=== PATIENT | female | born 1945 | race Caucasian/White ===

== ENCOUNTER 2019-10-09 11:43 | Emergency (ER) | payer MEDICARE ==
--- OUTSIDE RECORDS SUMMARY | 2019-10-09 11:51 | XMS REPORT | Continuity of Care Document ---
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 Onset: 08/28/2011 Diabetic gastroparesis Elicia Jones M.D. Onset: 02/05/2015 Chest pain Onset: Social History Type Date Description Comments Sex Unknown Tobacco Use Start: Unknown End: Unknown Quit Cigarette Use Pack Years - 10 ETOH Use Denies alcohol use Tobacco Use Start: Unknown End: Unknown Patient is a former smoker Recreational Drug Use Denies Drug Use Tobacco Use Start: Unknown Quit 36 years ago Smoking Status Reviewed: 09/30/19 Quit 36 years ago Allergies, Adverse Reactions, Alerts Description No Known Drug Allergies Medications Active Medications SIG Qnty Indications Ordering Provider Date Centrum Silver 1 by mouth every Unknown Tablets day Losartan Potassium 1 by mouth every Unknown day 100mg Tablets Metformin HCL take 1 tablet by marilee Jones, 500mg mouth bid Javier Rubi Tablets Simvastatin take 1 tablet by marilee Jones, 40mg mouth once daily Javier Rubi Tablets Ranitidine 150 2 by mouth every Unknown Maximum Strength day 150mg Tablets Vitamin B Complex take one every Unknown day Tablets Aspirin 1 by mouth every Unknown 325mg Tablets day Aleve take one every 4 Unknown 220mg Tablets hours as needed for pain Vitamin D3 Complete 1 by mouth every Unknown day Tablets Immunizations CPT Code Status Date Vaccine Lot # [id number] Given 08/21/2014 flu vaccination 43244 Given 08/30/2013 flu vaccination 64161 Given 08/23/2012 flu vaccination 78761 Given 11/07/2010 Pneumovax Injection 42334 Given 08/08/2010 flu vaccination 57785 Given 10/16/2009 flu vaccination 15217 Given 12/10/2005 flu vaccination 91031 Given 09/28/2003 flu vaccination 40698 Given 09/23/2002 flu vaccination 73080 Given 09/08/2000 Influenza Virus Whole 48477 Given 09/10/1999 Influenza Virus Vaccine 18888 Given 09/10/1999 Influenza Virus Whole Vital Signs Date Vital Result Comment 09/28/2019 2:47pm BP Systolic Sitting Left Arm 153 mmHg BP Diastolic Sitting Left Arm 75 mmHg 09/28/2019 2:43pm BP Systolic Sitting Left Arm 153 mmHg Results Test Acquired Facility Test Result H/L Range Note Date Glycohemoglobin 06/09/2019 [facility] Glycohemoglobin 5.8 % Normal 4.2-6.3 1, [address] (A1c) [place], [place] [id number] [phone] eAG 120 mg/dL 1 CONSULT 06/07/19 13:00 2 Elevated levels of HbA1c suggest the need for more aggressive treatment of glycemia. The [employer] [employer] recommends that a primary goal of therapy should be a HbA1c of <7% and that physicians should re-evaluate the treatment regimen in patients with HbA1c values consistently >8%. Procedures Date Code Description Status 09/30/2019 58725 Eye Exam New Patient Comprehensive Completed 09/28/2019 62783 Radiology, Ankle Complete Completed 08/31/2019 53054 Radiology, Ankle Complete Completed 08/17/2019 62369 Radiology, Ankle Complete Completed 07/19/2019 79022 Radiology, Ankle Complete Completed 06/30/2019 37117 Radiology, Ankle Complete Completed 06/30/2019 62245 Application short leg cast (below knee to toes) Completed 06/22/2019 43724 Radiology, Ankle Complete Completed 06/08/2019 20059 Bimalleolar ankle FX-open w/wo interrnal/external fixation Completed Medical Devices Description No Information Available Encounters Type Date Location Provider Dx Diagnosis Office Visit 09/28/2019 [facility] Nely Solano, S82.842E Displ bimalleol 3:00p fx l low leg, 7thE S90.32xA Contusion of left foot, initial encounter Assessments Date Code Description Provider 09/30/2019 E11.9 Type 2 diabetes mellitus without complications Maxx Warner MD 09/30/2019 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, right Maxx Warner MD eye 09/30/2019 H43.812 Vitreous degeneration, left eye Maxx Warner MD 09/30/2019 Z96.1 Presence of intraocular lens Maxx Warner MD 09/28/2019 S82.842E Displaced bimalleolar fracture of left lower Nely Solano MD leg, subsequent encounter for open fracture type I or II with routine healing 09/28/2019 S90.32xA Contusion of left foot, initial encounter Nely Solano MD 08/31/2019 S82.842E Displ bimalleol fx l low leg, 7thE Nely Solano MD 08/17/2019 S82.842E Displaced bimalleolar fracture of left lower Nely Solano MD leg, subsequent encounter for open fracture type I or II with routine healing 07/19/2019 S82.842E Displaced bimalleolar fracture of left lower Nely Solano MD leg, subsequent encounter for open fracture type I or II with routine healing 06/30/2019 S82.842E Displaced bimalleolar fracture of left lower Nely Solano MD leg, subsequent encounter for open fracture type I or II with routine healing 06/23/2019 S82.842E Displaced bimalleolar fracture of left lower Nely Solano MD leg, subsequent encounter for open fracture type I or II with routine healing 06/22/2019 S82.842E Displaced bimalleolar fracture of left lower Nely Solano MD leg, subsequent encounter for open fracture type I or II with routine healing 06/08/2019 S82.842A Displaced bimalleolar fracture of left lower Nely Solano MD leg, initial encounter for closed fracture 06/08/2019 X58.xxxA Exposure to other specified factors, initial Nely Solano MD encounter 06/08/[address] or not applicable Nely Solano MD 06/07/2019 S82.842E Displaced bimalleolar fracture of left lower Nely Solano MD leg, subsequent encounter for open fracture type I or II with routine healing 06/07/2019 Y99.0 Civilian activity done for income or pay Nely Solano MD Plan of Treatment Future Appointment(s):12/29/2019 2:15 pm - Nely Solano MD at [facility] [id number]/30/2019 - Maxx Warner MDE11.9 Type 2 diabetes mellitus without complicationsComments:- no sign of diabetic retinopathy- no macular edema- no neovascularization- glycemic, bp, lipid, weight control- potential for retinopathy, vision loss, and potential need for treatmentFollow up:1 year exam ; dm; long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, right eyeComments:- visually significant; as doing well; ok to follow- provided updated rx if zieqgjqZ81.812 Vitreous degeneration, left eyeComments:- no sign of retinal break or tear- review signs and symptoms of retinal detachment- review visual field self-assessment and need for evalZ96.1 Presence of intraocular lensComments:- s/p ce, iol, OS 04/21/16 Functional Status Description No Information Available Mental Status Description No Information Available Referrals Description No Information Available
--- OUTSIDE RECORDS SUMMARY | 2019-10-09 11:51 | XMS REPORT | Continuity of Care Document ---
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 Onset: 09/17/2015 Hyperlipidemia ManciniJigna alvarez, MSN, AXLE BEARING POLISHER Onset: 09/13/2014 Benign essential hypertension Jigna Mancini MSN, AXLE BEARING POLISHER Onset: 2013 Aneurysm of thoracic aorta Jigna Mancini, MSN, AXLE BEARING POLISHER Onset: 09/13/2014 Chest pain Jigna Mancini MSN, AXLE BEARING POLISHER Onset: 09/13/2014 Carpal tunnel syndrome Javan Velasquez [...] Quit 36 years ago Smoking Status Reviewed: 08/17/19 Quit 36 years ago Allergies, Adverse Reactions, [...] 220mg Tablets hours as needed for pain Immunizations CPT Code Status Date Vaccine Lot # [id number] Given 08/21/2014 flu vaccination 07455 Given 08/30/2013 flu vaccination 49245 Given 08/23/2012 flu vaccination 78905 Given 11/07/2010 Pneumovax Injection 75682 Given 08/08/2010 flu vaccination 10697 Given 10/16/2009 flu vaccination 18302 Given 12/10/2005 flu vaccination 31542 Given 09/28/2003 flu vaccination 20398 Given 09/23/2002 flu vaccination 23886 Given 09/08/2000 Influenza Virus Whole 51958 Given 09/10/1999 Influenza Virus Vaccine 16552 Given 09/10/1999 Influenza Virus Whole Vital Signs Date Vital Result Comment 08/17/2019 3:00pm BP Systolic 132 mmHg BP Diastolic 74 mmHg Body Temperature 98.0 F Heart Rate 76 /min O2 % BldC Oximetry 96 % 07/19/2019 2:39pm BP Systolic 108 mmHg BP Diastolic 60 mmHg Body Temperature 98.1 F Heart Rate 88 /min O2 % BldC Oximetry 97 % Results Test Date Facility Test Result H/L Range Note [facility] RMP, Ankle, LT, < pending> [address] [facility] [address] [place] [address] (3 View) [phone] Glycohemoglobin [facility] Glycohemoglobin 5.8 % Normal 4.2-6.3 1, [address] (A1c) [place], [place] [id number] [phone] eAG 120 mg/dL 1 CONSULT 06/07/19 13:00 2 Elevated levels of HbA1c suggest the need for more aggressive treatment of glycemia. The [place] [employer] recommends that a primary goal of therapy should be a HbA1c of <7% and that physicians should re-evaluate the treatment regimen in patients with HbA1c values consistently >8%. Procedures Date Code Description Status 08/17/2019 77204 Radiology, Ankle Complete Completed 07/19/2019 45232 Radiology, Ankle Complete Completed 06/30/2019 03303 Radiology, Ankle Complete Completed 06/30/2019 21130 Application short leg cast (below knee to toes) Completed 06/22/2019 61099 Radiology, Ankle Complete Completed 06/08/2019 24262 Bimalleolar ankle FX-open w/wo interrnal/external fixation Completed Medical Devices Description No Information Available Encounters Description No Information Available Assessments Date Code Description Provider 08/17/2019 S82.842E Displaced bimalleolar fracture of left lower Nely Solano MD leg, subsequent encounter for open fracture type I or II with routine healing 07/19/2019 S82.842E Displaced bimalleolar fracture of left lower Nely Solano MD leg, subsequent encounter for open fracture type I or II with routine healing 06/30/2019 S82.842E Displaced bimalleolar fracture of left lower Nely Sloano MD leg, subsequent encounter for open fracture [...] activity done for income or pay Nely Solnao MD Plan of Treatment Future Appointment(s):09/28/2019 3:00 pm - Nely Solano MD at [facility] [id number]/17/2019 - Nely Solano MDS82.842E Displaced bimalleolar fracture of left lower leg, subsequent encounter for open fracture type I or II with routine healingNew Therapy:Physical/Occupational Therapy Functional Status Description No Information Available Mental Status Description No Information Available Referrals Description No Information Available
[2019-10-09 12:03] VITALS: BP 146/60
--- NOTE | 2019-10-09 12:34 | UC ---
Throat Pain/Nasal Spencer HPI - HPI Summary HPI Summary: Pt states she has has sinus symptoms for more than 4 days with increasing sinus pressure, post-nasal drainage and now productive cough of yellow sputum. Former smoker. No fever or chills. - History of Current Complaint Chief Complaint: UCRespiratory Stated Complaint: SINUS/CHEST CONGESTION Time Seen by Provider: 10/09/19 12:16 Hx Obtained From: Patient Hx Last Menstrual Period: 1970s ?: No Onset/Duration: Gradual Onset Severity: Moderate Pain Intensity: 4 Cough: Productive - of yellow sputum but pt thinks it might be post-nasal drainage. Associated Signs & Symptoms: Positive: Sinus Discomfort, Nasal Discharge - Allergies/Home Medications Allergies/Adverse Reactions: Allergies Allergy/AdvReac Type Severity Reaction Status Date / Time No Known Allergies Allergy Verified 10/09/19 11:58 Home Medications: Home Medications Losartan Potassium 100 mg PO DAILY 10/09/19 [History Confirmed 10/09/19] PMH/Surg Hx/FS Hx/Imm Hx Previously Healthy: Yes Endocrine History: Diabetes, Dyslipidemia Cardiovascular History: Hypertension - Surgical History Surgical History: Yes Surgery Procedure, Year, and Place: Left Distal Tibia Fibula Fracture Repairs x , 2018, [place]; gallbladder removed. hysterectomy. right breast lumpectomy- -benign - Social History Occupation: Disabled - Temporary disability due to an ankle injury Alcohol Use: None Substance Use Type: None Smoking Status (MU): Former Smoker Length of Time of Smoking/Using Tobacco: 15 yrs Have You Smoked in the Last Year: No When Did the Patient Quit Smoking/Using Tobacco: 1979 Review of Systems All Other Systems Reviewed And Are Negative: Yes ENT: Positive: Nasal Discharge, Sinus Congestion, Sinus Pain/Tenderness Respiratory: Positive: Cough - Productive cough of yellow sputum. Is Patient Immunocompromised?: No Physical Exam Triage Information Reviewed: Yes Appearance: Well-Appearing, No Pain Distress, Well-Nourished Vital Signs: Initial Vital Signs Temp 98.4 F 10/09/19 11:56 Pulse 76 10/09/19 11:56 Resp 18 10/09/19 11:56 BP 146/60 10/09/19 11:56 Pulse Ox 100 10/09/19 11:56 Vital Signs Reviewed: Yes Eyes: Positive: Conjunctiva Clear ENT: Positive: Nasal congestion, Nasal drainage - yellow purulent nasal coryza and post nasal drainage., TMs normal, Sinus tenderness, Uvula midline Neck: Positive: Supple, Nontender, No Lymphadenopathy Respiratory: Positive: Lungs clear, Normal breath sounds, No respiratory distress, No accessory muscle use Cardiovascular: Positive: RRR, No Murmur - Hx of murmur but not heard today, Pulses Normal, Brisk Capillary Refill Musculoskeletal: Positive: ROM Limited @ - healing left ankle fracture, still with mild swelling and limited ROM. Neurological Exam: Normal Psychological Exam: Normal Skin Exam: Normal Throat Pain/Nasal Course/Dx - Course Course Of Treatment: Will treat for sinusitis...she could give it a few more days to see if symptoms will resolve in a few days. She will decide. - Differential Dx/Diagnosis Provider Diagnosis: Sinusitis Discharge ED - Sign-Out/Discharge Documenting (check all that apply): Patient Departure All imaging exams completed and their final reports reviewed: No Studies - Discharge Plan Condition: Good Disposition: HOME Prescriptions: Amoxicillin/Clavulanate TAB* [Augmentin TAB 875*] 875 mg PO BID 10 Days #20 tab Patient Education Materials: Sinusitis (ED) Referrals: Rasheeda Ewing [Primary Care Provider] - Additional Instructions: Take the Augmentin with food. Definite follow up with your doctor in 5-6 days if no improvement.IF you start the antibiotic, take it for the full 10 days. - Billing Disposition and Condition Condition: GOOD Disposition: Home
== END 2019-10-09 12:41 | disposition home or self-care (01) ==
LOC: UCCORT 11:43
DX: J32.9 Chronic sinusitis, unspecified (principal); R05 Cough; E11.9 Type 2 diabetes mellitus without complications; I10 Essential (primary) hypertension; Z79.899 Other long term (current) drug therapy; Z87.891 Personal history of nicotine dependence
CPT/HCPCS: 99212; G0463